=== PATIENT | male | born 1990 | race Caucasian/White ===

== ENCOUNTER 2024-03-19 13:47 | Emergency (ER) | payer BC ==
[2024-03-19 14:26] VITALS: BP 134/69; PULSE 68
[2024-03-19] MEDS: Acetaminophen 500 MG Tab PO ONE (15:19)
[2024-03-19] MEDS: Ketorolac 30 MG/ML SDV IM ONE (15:20)
[2024-03-19] MEDS: Bupivacaine 0.5% 10 ML SDV INFILT ONE (15:20)
== END 2024-03-19 15:39 | disposition home or self-care (01) ==
LOC: MW.ED 13:47
DX: K02.9 Dental caries, unspecified (principal)
CPT/HCPCS: 64400; 96372; 99283; A9270; J0665; J1885

== ENCOUNTER 2024-03-30 21:08 | Emergency (ER) | payer BC ==
[2024-03-30] MEDS: Bupivacaine 0.5% 10 ML SDV INJECT ONE (22:52)
[2024-03-30 23:22] VITALS: BP 114/83; PULSE 74
== END 2024-03-30 23:27 | disposition home or self-care (01) ==
LOC: MW.ED 21:08
DX: K02.9 Dental caries, unspecified (principal); F17.210 Nicotine dependence, cigarettes, uncomplicated
CPT/HCPCS: 64400; 99282; J0665; 99283

== ENCOUNTER 2024-08-13 18:13 | Emergency (ER) | payer BC ==
[2024-08-13] MEDS ORDERED: Sodium Chloride 0.9% 20 ML SDV IV PRN (19:46)
[2024-08-13] MEDS: Sodium Chloride 0.9% 1,000 ML IV ONE (19:51)
[2024-08-13] MEDS: Sodium Chloride 0.9% 10 ML Syringe FLUSH PRN (19:52)
[2024-08-13] MEDS: Sodium Chloride 0.9% 2.5 ML Syringe FLUSH PRN (19:52)
[2024-08-13 20:02] LABS: BASOPHILS ABSOLUTE AUTO 0.06 K/uL (0.00-0.20); BASOPHILS PERCENT AUTO 0.7 % (0.0-1.0); EOSINOPHILS ABSOLUTE AUTO 0.25 K/uL (0.00-0.45); HEMATOCRIT 35.8 % (42.0-52.0); HEMOGLOBIN 12.1 g/dL (14.0-18.0); IMMATURE GRAN ABSOLUTE AUTO 0.01 K/uL (0.00-0.05); IMMATURE GRAN PERCENT AUTO 0.1 % (0.0-0.4); LYMPHOCYTES PERCENT AUTO 27.7 % (24.0-44.0); MEAN CORPUSCULAR HEMOGLOBIN 30.8 pg (28.0-32.0); MEAN CORPUSCULAR HGB CONC 33.8 g/dL (32.0-36.0); MEAN CORPUSCULAR VOLUME 91.1 fL (83.0-99.0); MEAN PLATELET VOLUME 10.9 fL (9.4-12.4); MONOCYTES ABSOLUTE AUTO 0.69 K/uL (0.00-0.80); MONOCYTES PERCENT AUTO 8.3 % (0.0-8.0); NEUTROPHILS PERCENT AUTO 60.2 % (41.0-71.0); PLATELET COUNT,PLT 209 K/uL (150-400); RED BLOOD CELL COUNT 3.93 M/uL (4.52-5.90); WHITE BLOOD CELL COUNT,WBC 8.31 K/uL (3.9-11.3)
[2024-08-13] MEDS: Ampicillin/Sulbactam Na 3 GM in Sodium Chloride 0.9% 100 ML IV ONE (20:08)
[2024-08-13 20:24] LABS: A/G RATIO 1.1 (0.9-1.6); ALBUMIN 3.6 g/dL (3.4-5.0); BILIRUBIN TOTAL 0.2 mg/dL (0.2-1.0); CARBON DIOXIDE,CO2 29.1 mmol/L (21.0-32.0); CREATININE 1.3 mg/dL (0.8-1.3); EST CRCL DRUG DOSING (CG) 93.09 mL/min; POTASSIUM,K 4.3 mmol/L (3.5-5.1); PROTEIN TOTAL,TP 6.8 g/dL (6.4-8.2)
[2024-08-13] MEDS: Bacitracin/Neomycin/Polymyxin B Oint 28.4 GM Tube TOP ONE (20:55)
[2024-08-13] MEDS: Diphtheria,Pertussis(Acell),Tetanus Vaccine 0.5 ML Syringe IM ONE (20:56)
[2024-08-13 21:24] VITALS: BP 111/64; PULSE 55
== END 2024-08-13 21:21 | disposition home or self-care (01) ==
LOC: MW.ED 18:13
DX: T25.292A Burn of second degree of multiple sites of left ankle and foot, initial encounter (principal); Z23 Encounter for immunization; X12.XXXA Contact with other hot fluids, initial encounter; Y93.89 Activity, other specified
CPT/HCPCS: 36415; 80053; 82550; 85025; 90471; 90715; 96365; 99283; A9270; J0295; J7030; 99284